=== PATIENT | male | born 2000 | race Two or more races ===

== ENCOUNTER 2020-12-06 09:45 | Outpatient (REF) | payer MEDICAID, SELFPAY ==
--- NOTE | ~2020-12-06 | XR_ITS ---
EXAMINATION: XR CHEST CLINICAL INFORMATION: Right upper wall soft tissue lesion. COMPARISON: None TECHNIQUE: 2 views of the chest were obtained. FINDINGS: No significant abnormality is noted involving the heart, lungs, mediastinum, bony thorax or soft tissues. XR/XR chest 2V IMPRESSION: No acute disease.
[2020-12-06 10:32] LABS: MANUAL DIFF FLAG NO
[2020-12-06 11:01] LABS: Alanine Aminotransferase 26 U/L (0-40); Albumin Level 4.9 g/dL (3.5-5.0); Alkaline Phosphatase 47 U/L (39-117); Anion Gap 12 (12-20); Aspartate Amino Transferase 21 U/L (5-37); Bilirubin Total 0.6 mg/dL (0.0-1.0); Blood Urea Nitrogen 12 mg/dL (9-16); Calcium 10.1 mg/dL (8.4-10.2); Carbon Dioxide 28 mmol/L (22-29); Chloride 105 mmol/L (96-108); Cholesterol 150 mg/dL; Estimated Glomerular Filt Rate > 60; Glucose Random 96 mg/dL (60-115); Potassium 4.7 mmol/L (3.3-5.1); Sodium 140 mmol/L (135-145); Total Protein 7.4 g/dL (6.5-8.0)
[2020-12-06 11:04] LABS: Basophils Percent Auto 0.3 % (0-2); Eosinophils Absolute Auto 0.1 X10*3/uL (0.0-0.4); Eosinophils Percent Auto 1.7 % (0-4); Hematocrit 40.5 % (42-52); Hemoglobin 14.5 g/dl (14.0-18.0); Imm Gran Abs Auto 0.03 X10*3/uL (0.00-0.03); Imm Gran Pct Auto 0.5 % (0.0-0.4); Lymphocytes Absolute Auto 1.5 X10*3/uL (1.2-4.9); Mean Corpuscular HGB Conc 35.8 g/dl (31.0-36.0); Mean Corpuscular Hemoglobin 28.7 pg (27.0-33.0); Mean Corpuscular Volume 80.2 fL (80-98); Mean Platelet Volume 9.1 fL (9.4-12.4); Monocytes Absolute Auto 0.3 X10*3/uL (0.1-1.2); Monocytes Percent Auto 5.2 % (2-11); Neutrophils Absolute Auto 4.4 X10*3/uL (2.0-8.3); Neutrophils Percent Auto 69.3 % (45-73); Platelet Count 308 X10*3/uL (160-400); Red Blood Count 5.05 X10*6/uL (4.60-5.80); Red Cell Distribution Width 12.2 % (11.0-16.0); White Blood Count 6.4 X10*3/uL (4.8-10.8)
== END 2020-12-06 09:46 | disposition home or self-care (01) ==
LOC: HO.LAB 09:45
PROVIDERS: PCP Internal Medicine; Visit Provider Internal Medicine
DX: L98.9 Disorder of the skin and subcutaneous tissue, unspecified (principal)
CPT/HCPCS: 36415; 71046; 80053; 82465; 85025

== ENCOUNTER 2023-05-21 10:39 | Emergency (ER) | payer OTHER, SELFPAY ==
[2023-05-21 11:07] VITALS: BP 120/57; PULSE 65; RESP 16; TEMP 36.6; O2SAT 98; BMI 19.7
--- NOTE | 2023-05-21 11:12 | ED.GENADULT ---
HPI - General Adult General Chief complaint: Wound/Laceration Stated complaint: r middle finger inj at work Time Seen by Provider: 05/21/23 11:11 Source: patient, RN notes reviewed and old records reviewed Mode of arrival: ambulatory Limitations: no limitations History of Present Illness HPI narrative: 23-year-old male presents for evaluation of a laceration to his right 3rd finger. He accidentally cut it a metal piece of a door work This happened 3 days ago He denies any bleeding Denies any significant He reports ?I saw some meat coming out of it. ? Related Data Allergies Allergy/AdvReac Type Severity Reaction Status Date / Time No Known Allergies Allergy Verified 05/21/23 11:12 Review of Systems Integumentary/Breasts: Skin/Breast: Reports wounds Physical Exam ED Vital Signs: Vital Signs - 24 hr 05/21/23 11:07 Temperature 97.9 F Pulse Rate 65 Respiratory Rate 16 Blood Pressure 120/57 L Pulse Oximetry 98 Oxygen Delivery Method Room Air BMI result Body Mass Index 19.7 Skin Other: Patient a 1 cm full-thickness laceration to right 3rd fingertip. No active bleeding. There is some subcutaneous fatty tissue exposed. Medications Administered Discontinued Medications Generic Name Dose Route Start Last Admin Trade Name Freq PRN Reason Stop Dose Admin Diphtheria/Tetanus/Acell Pertussis 0.5 ml 05/21/23 11:12 05/21/23 11:15 Diphth,Pertus(Acell),Tet Adult 0.5 Ml Syringe IM 05/21/23 11:13 0.5 ml .ONCE ONE Administration Medical Decision Making Medical Decision Making MDM Narrative: Patient has a wound to the right 3rd finger that happened 3 days ago. Likely would have required primary closure over given that it the wound is 3-day-old there is a high risk of infection. Discussed with patient topical antibiotics and wound care. His tetanus was updated and he will be discharged Differential Diagnosis Differential Diagnoses: The differential diagnosis associated with the presentation includes Laceration Puncture wound Skin tear Abrasion Discharge Plan Discharge Clinical Impression: Laceration Patient Disposition: Home, Self-Care Instructions: Finger Laceration (ED) Additional Instructions: Keep the area clean and dry You may apply topical antibiotics such as Neosporin or bacitracin Your tetanus was updated today Follow-up with your primary doctor Stand Alone Forms: Work/School Release
[2023-05-21] MEDS: Diphth,Pertus(ACell),Tet Adult 0.5 ML SYRINGE IM (11:15)
== END 2023-05-21 11:23 | disposition home or self-care (01) ==
PROVIDERS: Emergency Provider Emergency Medicine Emergency Medical Services; PCP Internal Medicine
DX: S61.212A Laceration without foreign body of right middle finger without damage to nail, initial encounter (principal); W26.8XXA Contact with other sharp object(s), not elsewhere classified, initial encounter; Y93.89 Activity, other specified; Y92.9 Unspecified place or not applicable; Y99.0 Civilian activity done for income or pay; Z23 Encounter for immunization
CPT/HCPCS: 90471; 90715; 99282; 99284